=== PATIENT | female | born 1965 | race Caucasian/White ===

== ENCOUNTER → 2023-11-17 | Day surgery (SDC) | payer OTHER ==
[~2023-11-17] VITALS: Ht 162.6 cm; Wt 44.5 kg
[~2023-11-17] MED LIST: ACET1CAP14 PO; AML5T PO; ATOR20TA PO; B COCAP12 PO; HYOS0.1250 PO; KRIL1CAP11 PO; LIDOCAINE HCL 100 MG/5ML (2%) SYRG INJ IV ONE; LOSA-534 PO; MULT-1166 PO; MULT1CAP24 PO; OMEG-28 PO; ONDA-155 PO; ONDANSETRON HCL 4 MG/2 ML VIAL ONE; PROPOFOL 10 MG/ML 20 ML IV ONE; VENL75CA78 PO
[2023-11-17 11:14] VITALS: TEMP 97.6; O2SAT 99
[2023-11-17 11:44] VITALS: BP 124/91; PULSE 81; RESP 13; O2SAT 97
== END | disposition home or self-care (01) ==
LOC: GI 08:04
PROVIDERS: ATTEND Internal Medicine Gastroenterology
DX: R10.30 Lower abdominal pain, unspecified (principal); D12.3 Benign neoplasm of transverse colon; K62.1 Rectal polyp; K62.89 Other specified diseases of anus and rectum; K57.30 Diverticulosis of large intestine without perforation or abscess without bleeding; I10 Essential (primary) hypertension; E78.5 Hyperlipidemia, unspecified; J44.9 Chronic obstructive pulmonary disease, unspecified; Z90.89 Acquired absence of other organs; Z98.891 History of uterine scar from previous surgery; Z87.891 Personal history of nicotine dependence; Z79.899 Other long term (current) drug therapy
CPT/HCPCS: 45380; 88305; J2405; J2704; J7030